=== PATIENT | male | born 1975 | race Caucasian/White ===

== ENCOUNTER 2024-07-28 07:35 | Outpatient (CLI) | payer BC, SELFPAY ==
--- NOTE | 2024-07-28 07:52 | ECG_ITS ---
Test Date: 2024-07-28 08:04:27 Measurements Intervals [place] Rate: 61 P: 22 NM: 172 QRS: 0 QRSD: 122 T: 10 QT: 425 QTc: 430 Interpretive Statements SINUS RHYTHM No previous ECG available for comparison Electronically Signed On 07-28-2024 15:21:19 DELIVERY PERSON by Maribell Colón M.D.
[2024-07-28 08:31] LABS: Anion Gap 6 mmol/L (4-12); Blood Urea Nitrogen 16 mg/dL (9-20); Carbon Dioxide 29 mmol/L (22-30); Chloride 106 mmol/L (98-107); Estimated Glomerular Filt Rate > 60; Glucose 109 mg/dL (65-110); Potassium 3.8 mmol/L (3.4-5.0); Sodium 141 mmol/L (137-145)
== END 2024-07-28 07:36 | disposition home or self-care (01) ==
PROVIDERS: Anesthesiology; Visit Provider Podiatrist Foot & Ankle Surgery
DX: I10 Essential (primary) hypertension (principal); Z79.899 Other long term (current) drug therapy; Z01.818 Encounter for other preprocedural examination
CPT/HCPCS: 36415; 80048; 93005